=== PATIENT | male | born 1995 | race Caucasian/White ===

== ENCOUNTER 2017-11-05 14:51 | Emergency (ER) | payer OTHER ==
[~2017-11-05] VITALS: Ht 188 cm; Wt 72.3 kg
[2017-11-05 14:54] VITALS: TEMP 36.7; Ht 188 cm; Wt 72.3 kg
[2017-11-05] MEDS ORDERED: RANITIDINE HCL 150 MG TAB PO ONE (15:15)
[2017-11-05] MEDS ORDERED: FLUO20CA35 PO (16:08)
[2017-11-05] MEDS ORDERED: TRAZ50TA35 PO (16:08)
[2017-11-05] MEDS ORDERED: PRED50TA PO (16:33)
[2017-11-05 17:03] VITALS: BP 134/64; PULSE 89; O2SAT 98
--- NOTE | 2017-11-05 22:43 | EMERGENCY ROOM VISIT NOTE ---
History Report prepared by [place]: Becky Díaz Under the Supervision of: Dr. Simon Spain M.D. First contact with patient: 15:01 Chief Complaint: ALLERGIC REACTION Stated Complaint: HIVES,RAPID HEART RATE,CHANGE OF VISON,CONFUSION Nursing Triage Summary: pt reports believes having allergic reaction to med . prozac. rash and redness to hands. feels confused, has been going on for a few days has been using benadryl at home denies any n/v. has joint pain History of Present Illness The patient is a 22 year old male who presents to the Emergency Room with complaints of a persistent itchy rash on his hands for several days. The patient was recently discharged from [place] three weeks ago, when he was started on Prozac. He denies any prior use of this medication. He notes that the rashes have been moving around to different areas of his body on different days. He notes there was a rash on his head, so he stopped using his shampoo, though the rash moved so he does not believe it was the shampoo. He reports rashes to his neck, chest, and back. He notes the rash on his neck appears to be going away, though he has a rash on his hands. He notes that the rashes itch. He reports the itching is moderate. He denies any peeling of the skin, though states the rash appears blister-like. He also reports palpitations and feeling like he was having panic attacks. He has been taking Benadryl. He also started taking Trazodone at night time, though he has not taken it for two days. He states that he slept relatively okay without the Trazodone. He denies any new exposure to chemicals. He reports baseline issues urinating, though denies any new issues with urinating. He is allergic to Penicillin. He reports visual changes prior to the start of the rash. He describes the visual changes as a light flickering. Pt denies LOC, headache, fevers, chills, diaphoresis, neck pain, chest pain, breathing difficulties, nausea, vomiting, abdominal pain , back pain, melena, hematochezia, numbness, weakness, or other complaints. Source of History: patient Onset: for several days Position: hand (bilateral) Symptom Intensity: moderate Quality: other (itchy rash) Timing: other (persistent) Note: He notes palpitations and visual changes. He denies any peeling of the skin. He notes the rash is blister-like. Review of Systems See HPI for pertinent positives and negatives. A total of ten systems were reviewed and were otherwise negative. Past Medical & Surgical Medical Problems: (1) No Known Active Medical Problems Family History Cancer Social History Smoking Status: Current Every Day Smoker Marital Status: single Housing Status: lives with family Current/Historical Medications Scheduled Fluoxetine (Prozac), 20 MG PO DAILY Prednisone (Prednisone), 50 MG PO DAILY Trazodone Hcl (Trazodone), 50 MG PO HS Allergies Coded Allergies: Penicillins (Verified Allergy, Intermediate, HIVES-HAPPENED A CHILD, ) Uncoded Allergies: ANTIDEPRESSANT (Allergy, Severe, "BODY BECAME 'TENSE' AND SOB"., 11/05/17) Physical Exam Vital Signs Date Time Temp Pulse Resp B/P (MAP) Pulse Ox O2 Delivery O2 Flow Rate FiO2 11/05/17 17:03 89 18 134/64 98 11/05/17 14:54 36.7 111 20 180/68 98 Room Air Physical Exam GENERAL: Awake, alert, well-appearing, in no distress HENT: Normocephalic, atraumatic. Oropharynx unremarkable. EYES: Normal conjunctiva. Sclera non-icteric. NECK: Supple. No nuchal rigidity. FROM. No masses. RESPIRATORY: Clear to auscultation. No wheezes. No rales. Normal respiratory effort. CARDIAC: Normal rate. Normal rhythm. No murmurs. No rubs. Extremities warm and well perfused. Pulses equal. No JVD. GI: Soft, non-distended. No tenderness to palpation. No rebound or guarding. No masses. RECTAL: Deferred. MUSCULOSKELETAL: Atraumatic. Chest examination reveals no tenderness. The back is symmetrical on inspection without obvious abnormality. There is no CVA tenderness to palpation. No joint edema. LOWER EXTREMITIES: Calves are equal size bilaterally and non-tender. No edema. No discoloration. NEURO: Normal sensorium. No sensory or motor deficits noted. SKIN: Scattered hives on bilateral arms, neck, upper back, and around the belly button. Medical Decision & Procedures Medications Administered Medications (Trade) Dose Ordered Sig/Alex Route Start Time Stop Time Status Last Admin Dose Admin Prednisone (PredniSONE TAB) 60 mg NOW STAT PO 11/05/17 15:05 11/05/17 15:10 DC 11/05/17 15:24 60 MG Diphenhydramine HCl (Benadryl Cap) 50 mg NOW STAT PO 11/05/17 15:05 11/05/17 15:10 DC 11/05/17 15:24 50 MG Ranitidine HCl (zANTac TAB) 150 mg NOW ONCE PO 11/05/17 15:15 11/05/17 15:16 DC 11/05/17 15:24 150 MG ED Course 1502: The patient was evaluated in room B7. A complete history and physical exam was performed. 1505: Ordered Benadryl 50 mg PO and Prednisone 60 mg PO 1515: Ordered Zantac 150 mg PO 1618: I reassessed the patient at this time. He is feeling better and his rash has diminished. The patient received referrals for PCP and psychiatric follow up. I discussed the results and treatment plan with the patient. I answered all pertaining questions that he had. He expressed understanding and verbalized agreement. The patient will be discharged home. Medical Decision Prior records/ancillary studies reviewed. Triage Nursing notes reviewed and agree them. Additional history obtained from his mother . The patient's history was concerning for possible allergic reaction. Differential diagnosis: Etiologies such as allergic reaction, anaphylaxis, urticaria, Myers-Sabino syndrome, toxic epidermal necrolysis, erythema multiforme, cellulitis, as well as others were entertained. Physical examination: As above. ER treatment provided: Benadryl 50 mg PO Zantac 150 mg PO Prednisone 60mg PO On reassessment the patient felt much better. Diagnostic interpretation by me: Deferred It appears the patient had an allergic reaction. The above treatment did well to reverse the symptoms. The patient was provided with information for contact of local primary providers as well as psychiatric provider. In the interim he is going to contact his treating providers at the [facility] psychiatric unit and notify them of the likely reaction to the Prozac. By the evaluation outlined above emergent etiologies such as airway compromise, Myers-Sabino syndrome, toxic epidermal necrolysis, erythema multiforme, cellulitis, as well as others were deemed relatively unlikely. The patient and mother were informed about the findings as listed above. All questions were answered and they were pleased with the treatment. Return instructions were outlined and the patient was discharged in stable condition. Outpatient prescription management: prednisone Medication Reconcilliation Current Medication List: was personally reviewed by me Blood Pressure Screening Patient's blood pressure: Elevated blood pressure Blood pressure disposition: Referred to PCP Impression Primary Impression: Allergic reaction Scribe Attestation The scribe's documentation has been prepared under my direction and personally reviewed by me in its entirety. I confirm that the note above accurately reflects all work, treatment, procedures, and medical decision making performed by me. Departure Information Dispostion Home / Self-Care Prescriptions Prednisone (Prednisone) 50 Mg Tab 50 MG PO DAILY for 4 Days, #4 TAB Prov: Simon Spain MD 11/05/17 Referrals No Doctor, Assigned (PCP) Forms HOME CARE DOCUMENTATION FORM, IMPORTANT VISIT INFORMATION Patient Instructions My [facility] Additional Instructions ALLERGIC REACTION INSTRUCTIONS: DO NOT drive, drink alcohol, operate machinery, or perform dangerous activities today. You were given medications in the ER that can affect your ability to safely function or operate a vehicle. Prednisone 50mg: Once daily until the prescription is finished. It is best to take this earlier in the day as some patients note occasional difficulty falling asleep when taken in the late evening. Diphenhydramine(Benadryl) 25mg: use 25 to 50 mg every six hours for swelling, itching, or hives. This medication is sedating and will cause drowsiness. Avoid alcohol, operating machinery or dangerous equipment, working on ladders or roofs, DRIVING, or situations where being under the influence may be dangerous. Zantac 75: Take two pills twice a day along with Benadryl as needed for swelling , itching, or hives. Most people know this for its affect on the stomach, but it also acts similar to, but less potent than Benadryl for allergic reactions. Both the Benadryl and the Zantac are available [id number]. Stop the Prozac. Continue other current medications. Return to the emergency department for worsening of your rash, swelling of your face, lips, tongue, or throat, difficulty breathing, vomiting, worsening mood, suicidal thoughts, or as needed. Follow-up with a primary care physician as discussed with the numbers provided for a recheck of your current condition. Contact your inpatient psychiatric team tonight or tomorrow and let them know about the reaction. Further direction on your psychiatric medications will be necessary.
== END 2017-11-05 17:07 | disposition home or self-care (01) ==
LOC: C.EDB 14:54
DX: L27.0 Generalized skin eruption due to drugs and medicaments taken internally (principal); T43.225A Adverse effect of selective serotonin reuptake inhibitors, initial encounter; R03.0 Elevated blood-pressure reading, without diagnosis of hypertension; F17.200 Nicotine dependence, unspecified, uncomplicated; Z88.0 Allergy status to penicillin; Z88.8 Allergy status to other drugs, medicaments and biological substances

== ENCOUNTER → 2017-12-23 | Outpatient (CLI) | payer OTHER ==
[~2017-12-23] MED LIST: FLUO20CA35 PO; TRAZ50TA35 PO
[2017-12-23 10:19] LABS: BASO % 0.6 %; BASO ABS # 0.03 K/uL (0-0.2); EOS % 3.4 %; EOS ABS # 0.17 K/uL (0-0.5); HEMATOCRIT 43.6 % (42-52); HEMOGLOBIN 15.5 g/dL (14.0-18.0); IG# 0.01 K/uL (0.00-0.02); LYMPH ABS # 2.27 K/uL (1.2-3.4); MEAN CELL VOLUME 87.9 fL (80-100); MEAN CORPUSCULAR HEMOGLOBIN 31.3 pg (25-34); MEAN CORPUSCULAR HGB CONC 35.6 g/dl (32-36); MEAN PLATELET VOLUME 9.4 fL (7.4-10.4); MONO % 8.1 %; MONO ABS # 0.41 K/uL (0.11-0.59); NEUT % 42.7 %; NEUT ABS # 2.16 K/uL (1.4-6.5); PLATELET COUNT 216 K/uL (130-400); RED CELL DISTRIBUTION WIDTH CV 12.5 % (11.5-14.5); RED CELL DISTRIBUTION WIDTH SD 39.8 fL (36.4-46.3); WHITE BLOOD COUNT 5.05 K/uL (4.8-10.8)
[2017-12-23 10:50] LABS: ALT/SGPT 205 U/L (12-78); AST/SGOT 73 U/L (15-37); BLOOD UREA NITROGEN 13 mg/dl (7-18); CALCIUM 8.8 mg/dl (8.5-10.1); CARBON DIOXIDE 32 mmol/L (21-32); CHOLESTEROL 117 mg/dl (0-200); CREATININE 1.07 mg/dl (0.60-1.40); GLUCOSE 86 mg/dl (70-99); POTASSIUM 3.8 mmol/L (3.5-5.1); SODIUM 142 mmol/L (136-145)
[2017-12-23 10:53] LABS: ALKALINE PHOSPHATASE 88 U/L (45-117); LDL CHOLESTEROL CALCULATED 42 mg/dl; TOTAL PROTEIN 7.1 gm/dl (6.4-8.2)
== END | disposition home or self-care (01) ==
LOC: C.LAB1850 09:19
PROVIDERS: ATTEND Neuromusculoskeletal Medicine & OMM
DX: R51 Headache (principal)